=== PATIENT | female | born 1995 | race Caucasian/White ===

== ENCOUNTER 2019-01-14 11:48 | Emergency (ER) | payer OTHER ==
[2019-01-14] MEDS ORDERED: Zofran 4 MG/2 ML VIAL IV ONE (11:53)
[2019-01-14] MEDS ORDERED: Sodium Chloride 0.9% 1000 ML 1,000 ML IV STA ×2 (11:53→13:32)
--- NOTE | 2019-01-14 11:53 | ERPHSYRPT ---
- History of Present Illness Time Seen by Provider: 01/14/19 11:53 Source: patient Exam Limitations: no limitations Physician History: 23 y/o white female with h/o in past of opiate drug abuse. pt placed on methadone. pt decided to quit methadone "cold turkey". pt is 9 days off methadone. pt states she doesnt feel right. she has nausea, vomiting and sweating. she cannot hold down fluids. pt concerned about dehydration. Severity of Symptoms-Max: moderate Severity of Symptoms-Current: moderate Context related to: other (methadone withdraw) Associated Symptoms: anxiety Previous symptoms: no prior history Allergies/Adverse Reactions: azithromycin [From Zithromax] Allergy (Verified 01/14/19 13:32) Sulfa (Sulfonamide Antibiotics) Allergy (Verified 01/14/19 13:32) - Past Medical History Pertinent Past Medical History: Yes Neurological History: No Pertinent History ENT History: No Pertinent History Cardiac History: No Pertinent History Respiratory History: No Pertinent History Endocrine Medical History: No Pertinent History Musculoskeletal History: No Pertinent History GI Medical History: No Pertinent History History: No Pertinent History Psycho-Social History: No Pertinent History Female Reproductive Disorders: No Pertinent History - Past Surgical History Neuro Surgical History: No Pertinent History Cardiac: No Pertinent History Respiratory: No Pertinent History Gastrointestinal: No Pertinent History Genitourinary: No Pertinent History Musculoskeletal: No Pertinent History Female Surgical History: No Pertinent History - Social History Drug Use: heroin (former), other (opiates former) - Review of Systems Constitutional: No Symptoms Eyes: No Symptoms Ears, Nose, & Throat: No Symptoms Respiratory: No Symptoms Cardiac: No Symptoms Abdominal/Gastrointestinal: Nausea, Vomiting, Appetite Changes Genitourinary Symptoms: No Symptoms Musculoskeletal: No Symptoms Skin: No Symptoms Neurological: No Symptoms Psychological: No Symptoms Endocrine: No Symptoms Hematologic/Lymphatic: No Symptoms Immunological/Allergic: No Symptoms All Other Systems: Reviewed and Negative - Nursing Vital Signs Nursing Vital Signs: Initial Vital Signs Temperature 97.7 F 01/14/19 11:58 Pulse Rate 91 H 01/14/19 11:58 Respiratory Rate 16 01/14/19 11:58 Blood Pressure 145/105 01/14/19 11:58 O2 Sat by Pulse Oximetry 100 01/14/19 11:58 Pain Scale Pain Intensity 4 - Physical Exam General Appearance: mild distress, alert, anxiety Eyes, Ears, Nose, Throat Exam: normal ENT inspection, moist mucous membranes Neck Exam: normal inspection, non-tender, supple, full range of motion Respiratory Exam: normal breath sounds, lungs clear, airway intact, No chest tenderness, No respiratory distress Cardiovascular Exam: regular rate/rhythm, normal heart sounds, normal peripheral pulses Gastrointestinal/Abdominal Exam: soft, normal bowel sounds, No tenderness Neurological Exam: alert, 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, oriented x 3, anxious Appearance: appropriate appearance, appropriate insight, neat, no memory impairment Behavior/Eye Contact/Speech: alert & cooperative, good eye contact, normal speech Thoughts/Hallucinations: normal thought pattern, no apparent hallucination Skin Exam: normal color, warm, dry SpO2 Interpretation: normal O2 Delivery: Room Air - Course Nursing assessment & vital signs reviewed: Yes Ordered Tests: Active Orders 24 hr Category Date Time Status IV Insertion STAT Care 01/14/19 11:53 Active ACETAMINOPHEN Stat Lab 01/14/19 12:15 Completed CBC W DIFF Stat Lab 01/14/19 12:15 Completed CMP Stat Lab 01/14/19 12:15 Completed ETHYL ALCOHOL Stat Lab 01/14/19 12:15 Completed HCG,QUALITATIVE URINE Stat Lab 01/14/19 12:16 Completed SALICYLATE Stat Lab 01/14/19 12:15 Completed UA W/RFX UR CULTURE Stat Lab 01/14/19 12:16 Completed Urine Triage Profile Stat Lab 01/14/19 12:16 Completed Medication Summary Generic Name Dose Route Start Last Admin Trade Name Freq PRN Reason Stop Dose Admin Sodium Chloride 1,000 mls @ 999 mls/hr 01/14/19 13:32 01/14/19 13:50 Sodium Chloride 0.9% 1000 Ml IV 01/14/19 14:32 999 mls/hr .Q1H1M STA Administration Discontinued Medications Generic Name Dose Route Start Last Admin Trade Name Freq PRN Reason Stop Dose Admin Sodium Chloride 1,000 mls @ 999 mls/hr 01/14/19 11:53 01/14/19 14:08 Sodium Chloride 0.9% 1000 Ml IV 01/14/19 12:53 Infused .Q1H1M STA Infusion Sodium Chloride Confirm 01/14/19 12:05 Sodium Chloride 0.9% 1000 Ml Administered 01/14/19 12:06 Dose 1,000 mls @ ud .ROUTE .STK-MED ONE Sodium Chloride Confirm 01/14/19 13:49 Sodium Chloride 0.9% 1000 Ml Administered 01/14/19 13:50 Dose 1,000 mls @ ud .ROUTE .STK-MED ONE Lorazepam 0.5 mg 01/14/19 13:53 01/14/19 14:14 Ativan 2 Mg/1 Ml Vial IV 01/14/19 13:54 0.5 mg STAT ONE Administration Lorazepam Confirm 01/14/19 14:12 Ativan 2 Mg/1 Ml Vial Administered 01/14/19 14:13 Dose 2 mg .ROUTE .STK-MED ONE Ondansetron HCl 4 mg 01/14/19 11:53 01/14/19 12:25 Zofran 4 Mg/2 Ml Vial IV 01/14/19 11:54 4 mg STAT ONE Administration Ondansetron HCl Confirm 01/14/19 12:05 Zofran 4 Mg/2 Ml Vial Administered 01/14/19 12:06 Dose 4 mg .ROUTE .STK-MED ONE Lab/Rad Data: Laboratory Result Diagrams 01/14/19 12:15 01/14/19 12:15 Laboratory Results 01/14/19 01/14/19 01/14/19 Range/Units 12:16 12:16 12:16 WBC (4.0-10.5) K/mm3 RBC (4.1-5.4) M/mm3 Hgb (12.0-16.0) gm/dl Hct (35-47) % MCV (78-100) fl MCH (26-32) pg MCHC (32-36) g/dl RDW (11.5-14.0) % Plt Count (150-450) K/mm3 MPV (6-9.5) fl Gran % (36.0-66.0) % Eos # (Auto) (0-0.5) Absolute Lymphs (auto) (1.0-4.6) Absolute Monos (auto) (0.0-1.3) Lymphocytes % (24.0-44.0) % Monocytes % (0.0-12.0) % Eosinophils % (0.00-5.0) % Basophils % (0.0-0.4) % Absolute Granulocytes (1.4-6.9) Basophils # (0-0.4) Sodium (137-145) mmol/L Potassium (3.5-5.1) mmol/L Chloride (98-107) mmol/L Carbon Dioxide (22-30) mmol/L Anion Gap (5-15) MEQ/L BUN (7-17) mg/dL Creatinine (0.52-1.04) mg/dL Estimated GFR ML/MIN Glucose (74-106) mg/dL Calcium (8.4-10.2) mg/dL Total Bilirubin (0.2-1.3) mg/dL AST (14-36) U/L ALT (0-35) U/L Alkaline Phosphatase (38-126) U/L Serum Total Protein (6.3-8.2) g/dL Albumin (3.5-5.0) g/dL Urine Color YELLOW (YELLOW) Urine Appearance CLEAR (CLEAR) Urine pH 6.0 (5-6) Ur Specific [place] 1.020 (1.005-1.025) Urine Protein NEGATIVE (Negative) Urine Ketones NEGATIVE (NEGATIVE) Urine Blood NEGATIVE (0-5) Cedric/ul Urine Nitrite NEGATIVE (NEGATIVE) Urine Bilirubin NEGATIVE (NEGATIVE) Urine Urobilinogen NEGATIVE (0-1) mg/dL Ur Leukocyte Esterase NEGATIVE (NEGATIVE) Urine WBC (Auto) NONE (0-5) /HPF Urine RBC (Auto) NONE (0-2) /HPF U Epithel Cells (Auto) NONE (FEW) /HPF Urine Bacteria (Auto) NONE (NEGATIVE) /HPF Urine Mucus (Auto) SLIGHT (NEGATIVE) /HPF Urine Culture Reflexed NO (NO) Urine Glucose NEGATIVE (NEGATIVE) mg/dL Urine HCG, Qual NEGATIVE (Negative) Salicylates (2-20) mg/dL Urine Opiates Level NEGATIVE (NEGATIVE) Ur Methadone NEGATIVE (NEGATIVE) Acetaminophen (10-30) ug/ml Urine Barbiturates NEGATIVE (NEGATIVE) Ur Phencyclidine (PCP) NEGATIVE (NEGATIVE) Urine Amphetamine NEGATIVE (NEGATIVE) U Benzodiazepine Level NEGATIVE (NEGATIVE) Urine Cocaine NEGATIVE (NEGATIVE) Urine Marijuana (THC) NEGATIVE (NEGATIVE) Ethyl Alcohol (0-10) mg/dL 01/14/19 01/14/19 Range/Units 12:15 12:15 WBC 6.9 (4.0-10.5) K/mm3 RBC 5.47 H (4.1-5.4) M/mm3 Hgb 16.1 H (12.0-16.0) gm/dl Hct 48.8 H (35-47) % MCV 89.2 (78-100) fl MCH 29.4 (26-32) pg MCHC 33.0 (32-36) g/dl RDW 13.8 (11.5-14.0) % Plt Count 260 (150-450) K/mm3 MPV 9.1 (6-9.5) fl Gran % 76.0 H (36.0-66.0) % Eos # (Auto) 0.04 (0-0.5) Absolute Lymphs (auto) 1.21 (1.0-4.6) Absolute Monos (auto) 0.39 (0.0-1.3) Lymphocytes % 17.6 L (24.0-44.0) % Monocytes % 5.7 (0.0-12.0) % Eosinophils % 0.6 (0.00-5.0) % Basophils % 0.1 (0.0-0.4) % Absolute Granulocytes 5.22 (1.4-6.9) Basophils # 0.01 (0-0.4) Sodium 144 (137-145) mmol/L Potassium 3.9 (3.5-5.1) mmol/L Chloride 104 (98-107) mmol/L Carbon Dioxide 27 (22-30) mmol/L Anion Gap 16.9 H (5-15) MEQ/L BUN 22 H (7-17) mg/dL Creatinine 0.64 (0.52-1.04) mg/dL Estimated GFR > 60.0 ML/MIN Glucose 83 (74-106) mg/dL Calcium 10.2 (8.4-10.2) mg/dL Total Bilirubin 0.50 (0.2-1.3) mg/dL AST 41 H (14-36) U/L ALT 14 (0-35) U/L Alkaline Phosphatase 57 (38-126) U/L Serum Total Protein 9.0 H (6.3-8.2) g/dL Albumin 5.1 H (3.5-5.0) g/dL Urine Color (YELLOW) Urine Appearance (CLEAR) Urine pH (5-6) Ur Specific [place] (1.005-1.025) Urine Protein (Negative) Urine Ketones (NEGATIVE) Urine Blood (0-5) Cedric/ul Urine Nitrite (NEGATIVE) Urine Bilirubin (NEGATIVE) Urine Urobilinogen (0-1) mg/dL Ur Leukocyte Esterase (NEGATIVE) Urine WBC (Auto) (0-5) /HPF Urine RBC (Auto) (0-2) /HPF U Epithel Cells (Auto) (FEW) /HPF Urine Bacteria (Auto) (NEGATIVE) /HPF Urine Mucus (Auto) (NEGATIVE) /HPF Urine Culture Reflexed (NO) Urine Glucose (NEGATIVE) mg/dL Urine HCG, Qual (Negative) Salicylates < 1.0 L (2-20) mg/dL Urine Opiates Level (NEGATIVE) Ur Methadone (NEGATIVE) Acetaminophen < 10 L (10-30) ug/ml Urine Barbiturates (NEGATIVE) Ur Phencyclidine (PCP) (NEGATIVE) Urine Amphetamine (NEGATIVE) U Benzodiazepine Level (NEGATIVE) Urine Cocaine (NEGATIVE) Urine Marijuana (THC) (NEGATIVE) Ethyl Alcohol < 10 (0-10) mg/dL - Progress Progress: improved, re-examined Counseled pt/family regarding: lab results, diagnosis, need for follow-up - Departure Departure Disposition: Home Clinical Impression: Vomiting, Anxiety Condition: Stable Critical Care Time: No Referrals: DOCTOR,NO FAMILY [Primary Care Provider] - Additional Instructions: drink plenty of fluids. follow up with primary doctor for further management Prescriptions: Ondansetron HCl [Zofran] 4 mg PO TID PRN #10 tablet PRN Reason: Nausea/Vomiting
[2019-01-14] MEDS ORDERED: Zofran 4 MG/2 ML VIAL ONE (12:05)
[2019-01-14] MEDS ORDERED: Sodium Chloride 0.9% 1000 ML 1,000 ML ONE ×2 (12:05→13:49)
[2019-01-14 12:21] LABS: BASOPHIL % 0.1 % (0.0-0.4); Basophil (Absolute #) 0.01 (0-0.4); Eosinophil % 0.6 % (0.00-5.0); Eosinophil (Absolute #) 0.04 (0-0.5); Granulocyte Absolute (ANC) 5.22 (1.4-6.9); Hematocrit 48.8 % (35-47); Hemoglobin 16.1 gm/dl (12.0-16.0); Lymphocyte (Absolute #) 1.21 (1.0-4.6); Lymphocytes % 17.6 % (24.0-44.0); Mean Cell Volume 89.2 fl (78-100); Mean Corpuscular Hemoglobin 29.4 pg (26-32); Mean Platelet Volume 9.1 fl (6-9.5); Monocyte (Absolute #) 0.39 (0.0-1.3); Monocytes % 5.7 % (0.0-12.0); Platelet Count 260 K/mm3 (150-450); Red Blood Count 5.47 M/mm3 (4.1-5.4); Red Cell Distribution Width 13.8 % (11.5-14.0); White Blood Count 6.9 K/mm3 (4.0-10.5)
[2019-01-14 12:26] LABS: Appearance CLEAR (CLEAR); Bilirubin NEGATIVE (NEGATIVE); Blood NEGATIVE Ery/ul (0-5); Glucose NEGATIVE (NEGATIVE); Ketones NEGATIVE (NEGATIVE); Leukocyte Esterase NEGATIVE (NEGATIVE); Mucus SLIGHT /HPF (NEGATIVE); Nitrite NEGATIVE (NEGATIVE); Protein,Urine Dip NEGATIVE (Negative); Urobilinogen NEGATIVE mg/dL (0-1)
[2019-01-14 12:50] LABS: ALBUMIN 5.1 g/dL (3.5-5.0); ALKALINE PHOSPHATASE 57 U/L (38-126); ANION GAP 16.9 MEQ/L (5-15); BLOOD UREA NITROGEN 22 mg/dL (7-17); CHLORIDE 104 mmol/L (98-107); Calcium 10.2 mg/dL (8.4-10.2); Carbon Dioxide 27 mmol/L (22-30); Creatinine 1 0.64 mg/dL (0.52-1.04); Glucose 83 mg/dL (74-106); Potassium 3.9 mmol/L (3.5-5.1); SGOT/AST 41 U/L (14-36); SGPT/ALT 14 U/L (0-35); SODIUM 144 mmol/L (137-145)
[2019-01-14 12:51] LABS: ACETAMINOPHEN < 10 ug/ml (10-30); ETHYL ALCOHOL < 10 mg/dL (0-10); SALICYLATE < 1.0 mg/dL (2-20)
[2019-01-14 12:57] LABS: Amphetamine,Urine NEGATIVE (NEGATIVE); Barbiturate,Urine NEGATIVE (NEGATIVE); Benzodiazepine,Urine NEGATIVE (NEGATIVE); Cocaine,Urine NEGATIVE (NEGATIVE); Methadone,Urine NEGATIVE (NEGATIVE); Opiate,Urine NEGATIVE (NEGATIVE); PCP,Urine NEGATIVE (NEGATIVE); THC,Urine NEGATIVE (NEGATIVE)
[2019-01-14] MEDS ORDERED: Ativan 2 MG/1 ML VIAL IV ONE (13:53)
[2019-01-14] MEDS ORDERED: Ativan 2 MG/1 ML VIAL ONE (14:12)
[2019-01-14 14:31] VITALS: BP 134/92; PULSE 82; O2SAT 100
== END 2019-01-14 14:41 | disposition home or self-care (01) ==
LOC: ED 11:48
DX: R11.10 Vomiting, unspecified (principal); F41.9 Anxiety disorder, unspecified
CPT/HCPCS: 36415; 80053; 80307; 81001; 84703; 85025; 96360; 96361; 96374; 96375; 99284; G0480; G0481; J2060; J2405

== ENCOUNTER 2019-05-22 18:14 | Emergency (ER) | payer OTHER | END 2019-05-22 19:20 | disposition left against medical advice (07) | LOC: ED 18:14 | DX: Z53.9 Procedure and treatment not carried out, unspecified reason (principal) | CPT/HCPCS: 99281 ==

== ENCOUNTER 2021-10-23 14:39 | Emergency (ER) | payer OTHER ==
[2021-10-23 14:51] VITALS: BP 126/81
--- NOTE | 2021-10-23 14:52 | ERPHSYRPT ---
- History of Present Illness Time Seen by Provider: 10/23/21 14:51 Source: patient Exam Limitations: no limitations Patient Subjective Stated Complaint: Pt states "I was at work about 4 weeks ago and my right wrist popped and a week ago it did again. I am having pain in my right wrist that goes up into my right elbow." Triage Nursing Assessment: Pt presented alert and oriented X 3, skin pwd. Pt ambulates with an upright steady gait, able to speak in clear full sentences. PT right wrist not swollen, no bruising noted, csm x 4 Physician History: This is a 26-year-old white female who is right-handed and presents with right wrist pain and popping that has been intermittent over the last 1 to 2 months. She does do a lot of repetitive work at her job. Recently, she noticed that the pain that is present in her right wrist shoots up into her elbow on the right side. She spoke to her prescribing provider today and they called in prednisone for her to help with symptom relief but also told her to come to the emergency department for evaluation. The patient has not noticed any swelling. She has no chest pain. She is not short of breath. She has no cough. Occurred: other (Several weeks ago) Method of Injury: other (Repetitive work at her job) Severity of Pain-Max: mild (To moderate) Severity of Pain-Current: mild (To moderate) Extremities Pain Location: wrist: right Modifying Factors: Improves With: movement Associated Symptoms: none Allergies/Adverse Reactions: azithromycin [From Zithromax] Allergy (Verified 01/14/19 13:32) Sulfa (Sulfonamide Antibiotics) Allergy (Verified 01/14/19 13:32) Home Medications: Buprenorphine HCl/Naloxone HCl [Buprenorphine-Nalox 2-0.5MG Tb] 3 tab PO DAILY 10/23/21 [History] Diazepam 5 mg [Valium 5 MG] 10 mg PO DAILY 10/23/21 [History] Prednisone 20 mg [Deltasone 20 mg] 20 mg PO DAILY 10/23/21 [History] Hx Tetanus, Diphtheria Vaccination/Date Given: Yes Hx Influenza Vaccination/Date Given: No Hx Pneumococcal Vaccination/Date Given: No Immunizations Up to Date: Yes Travel Risk - International Travel Have you traveled outside of the country in past 3 weeks: No - Coronavirus Screening Are you exhibiting any of the following symptoms?: No Close contact with a COVID-19 positive Pt in past 14-21 Days: No - Vaccine Status Have you recieved a Covid-19 vaccination: No - Review of Systems Constitutional: No Symptoms Eyes: No Symptoms Ears, Nose, & Throat: No Symptoms Respiratory: No Symptoms Cardiac: No Symptoms Abdominal/Gastrointestinal: No Symptoms Genitourinary Symptoms: No Symptoms Musculoskeletal: Joint Pain (Right wrist) Skin: No Symptoms Neurological: No Symptoms Psychological: No Symptoms Endocrine: No Symptoms Hematologic/Lymphatic: No Symptoms Immunological/Allergic: No Symptoms All Other Systems: Reviewed and Negative - Past Medical History Pertinent Past Medical History: Yes Neurological History: No Pertinent History ENT History: No Pertinent History Cardiac History: No Pertinent History Respiratory History: No Pertinent History Endocrine Medical History: No Pertinent History Musculoskeletal History: No Pertinent History GI Medical History: No Pertinent History History: No Pertinent History Psycho-Social History: No Pertinent History Female Reproductive Disorders: No Pertinent History - Past Surgical History Past Surgical History: Yes Neuro Surgical History: No Pertinent History Cardiac: No Pertinent History Respiratory: No Pertinent History Gastrointestinal: No Pertinent History Genitourinary: No Pertinent History Musculoskeletal: No Pertinent History Female Surgical History: No Pertinent History - Social History Smoking Status: Current every day smoker Exposure to second hand smoke: No Drug Use: none Patient Lives Alone: No - Female History Hx Last Menstrual Period: 10/06/2021 Hx Now: No - Nursing Vital Signs Nursing Vital Signs: Initial Vital Signs Temperature 98.6 F 10/23/21 14:44 Pulse Rate 68 10/23/21 14:44 Respiratory Rate 20 10/23/21 14:44 Blood Pressure 126/81 10/23/21 14:44 O2 Sat by Pulse Oximetry 100 10/23/21 14:44 Pain Scale Pain Intensity 6 - Physical Exam General Appearance: no apparent distress, alert, anxiety Eyes, Ears, Nose, Throat Exam: normal ENT inspection, moist mucous membranes Neck Exam: normal inspection, non-tender, supple, full range of motion Cardiovascular/Respiratory Exam: chest non-tender, no respiratory distress Abdominal Exam: non-tender Back Exam: normal inspection, normal range of motion, No CVA tenderness, No vertebral tenderness Shoulder Exam: normal inspection, non-tender, no evidence of injury, normal ROM Elbow/Forearm Exam: normal inspection, non-tender, no evidence of injury, normal ROM Wrist Exam: normal inspection, no evidence of injury, normal ROM, bone tenderness, soft tissue tenderness Hand Exam: normal inspection, non-tender, no evidence of injury, normal ROM Neuro/Tendon Exam: normal sensation, normal motor functions, normal tendon functions, responds to pain, no evidence tendon injury Mental Status Exam: alert, oriented x 3, cooperative Skin Exam: normal color, warm, dry SpO2 Interpretation: normal SpO2: 100 O2 Delivery: Room Air - Course Nursing assessment & vital signs reviewed: Yes Ordered Tests: Active Orders 24 hr Category Date Time Status WRIST (MIN 3 VIEWS) Stat Exams 10/23/21 14:52 Taken - Progress Progress: unchanged Progress Note: 10/23/21 15:19 X-ray right wrist shows no acute fracture or dislocation. Counseled pt/family regarding: diagnosis, need for follow-up, rad results - Departure Departure Disposition: Home Clinical Impression: Right wrist pain Condition: Stable Critical Care Time: No Additional Instructions: Ice pack to area 2-3 times a day for the next 48 hours. Follow-up tomorrow with [facility] orthopedic clinic 8 AM to 10 AM. It is a walk-in clinic and you do not need an appointment. Take your prednisone prescription that was called in for you as directed. Wear the splint for comfort.
--- NOTE | 2021-10-23 15:26 | XRAY ---
Indication: Pain and "popping." Comparison: None 3 view right wrist demonstrates normal bones, articulation, and soft tissues.
[2021-10-23 15:27] VITALS: PULSE 62; O2SAT 99
== END 2021-10-23 15:32 | disposition home or self-care (01) ==
LOC: ED 14:39
DX: M25.531 Pain in right wrist (principal); X50.3XXA Overexertion from repetitive movements, initial encounter; Y99.0 Civilian activity done for income or pay; Z72.0 Tobacco use; Z79.891 Long term (current) use of opiate analgesic; Z79.52 Long term (current) use of systemic steroids; Z79.899 Other long term (current) drug therapy; Z28.310 Unvaccinated for COVID-19
CPT/HCPCS: 73110; 99283

== ENCOUNTER 2021-12-11 05:41 | Emergency (ER) | payer OTHER ==
[2021-12-11] MEDS ORDERED: BENADRYL 50 MG/ML IV ONE ×2 (06:23→07:46)
[2021-12-11] MEDS ORDERED: TYLENOL 325 MG PO ONE (06:23)
[2021-12-11] MEDS ORDERED: TORAdol 30 mg Injection IV ONE (06:23)
[2021-12-11] MEDS ORDERED: Reglan 10 MG/2 ML IV ONE (06:23)
[2021-12-11] MEDS ORDERED: Sodium Chloride 0.9% 1000 ML 1,000 ML IV STA (06:23)
[2021-12-11] MEDS ORDERED: TORAdol 30 mg Injection ONE (06:30)
[2021-12-11] MEDS ORDERED: TYLENOL 325 MG ONE (06:30)
[2021-12-11] MEDS ORDERED: BENADRYL 50 MG/ML ONE ×2 (06:30→08:15)
[2021-12-11] MEDS ORDERED: Reglan 10 MG/2 ML ONE (06:31)
[2021-12-11] MEDS ORDERED: Sodium Chloride 0.9% 1000 ML 1,000 ML ONE (06:31)
[2021-12-11 06:32] LABS: Absolute Neutrophil Ct (ANC) 3.09 x10^3/uL (1.4-6.9); Basophil (Absolute #) 0.01 x10^3/uL (0-0.4); Eosinophil % 0.7 % (0.00-5.0); Eosinophil (Absolute #) 0.03 x10^3/uL (0-0.5); Hematocrit 39.6 % (35-47); Hemoglobin 13.2 g/dL (12.0-16.0); Lymphocyte (Absolute #) 0.84 x10^3/uL (1.0-4.6); Lymphocytes % 19.5 % (24.0-44.0); Mean Cell Volume 86.8 fL (78-100); Mean Corpuscular Hemoglobin 28.9 pg (26-32); Mean Corpuscular Hgb Concent. 33.3 g/dL (32-36); Mean Platelet Volume 9.3 fL (7.5-11.0); Monocyte (Absolute #) 0.32 x10^3/uL (0.0-1.3); Monocytes % 7.4 % (0.0-12.0); Platelet Count 187 x10^3/uL (150-450); Red Blood Count 4.56 x10^6/uL (4.1-5.4); Red Cell Distribution Width 13.2 % (11.5-14.0); White Blood Count 4.3 x10^3/uL (4.0-10.5)
[2021-12-11 06:36] LABS: ALKALINE PHOSPHATASE 68 U/L (38-126); ANION GAP 10.8 MEQ/L (5-15); BLOOD UREA NITROGEN 14 mg/dL (7-17); CHLORIDE 102 mmol/L (98-107); Calcium 9.1 mg/dL (8.4-10.2); Carbon Dioxide 27 mmol/L (22-30); Creatinine 1 0.56 mg/dL (0.52-1.04); EST GLOMERULAR FILTRATION RATE > 60.0 ML/MIN; Glucose 94 mg/dL (74-106); Potassium 3.8 mmol/L (3.5-5.1); SGOT/AST 26 U/L (14-36); SGPT/ALT 17 U/L (0-35); SODIUM 136 mmol/L (137-145); Total Protein 7.2 g/dL (6.3-8.2)
--- NOTE | 2021-12-11 06:41 | ERPHSYRPT ---
- History of Present Illness Source: patient Exam Limitations: no limitations Patient Subjective Stated Complaint: Pt states she has a history of migraines but they've gotten worse over last 2 weeks. Also running fever. Triage Nursing Assessment: Pt alert and oriented. Ambulated back to ER bed with a steady gait. Respirations easy and non-labored. Pt covering her eyes and tearful. Temp 100.4. Timing/Duration: day(s) (5), constant, gradual onset, worse Quality: sharpness Head Pain Location: global Severity of Pain-Max: severe Severity of Pain-Current: severe Recent Head Trauma: no recent headache/trauma, frequent headaches Modifying Factors: Worsens With: exposure to light Associated Symptoms: fatigue, fever/chills, nausea/vomiting, neck pain, sensitive to light, No loss of consciousness, No nasal drainage, No speech problems, No stiff neck, No trouble walking, No visual disturbance, No weakness Previous symptoms: same symptoms as today Hx Tetanus, Diphtheria Vaccination/Date Given: Yes Hx Influenza Vaccination/Date Given: No Hx Pneumococcal Vaccination/Date Given: No <ADAMA LOUIS - Last Filed: 12/11/21 06:25> <KETAN APPLE - Last Filed: 12/11/21 09:08> - History of Present Illness Time Seen by Provider: 12/11/21 06:02 Physician History: 26 years old female with a history of migraine poorly controlled presented in the ER with 5-day history of generalized headache moderate to severe sharp throbbing, nonresponsive to [id number] medications, associated with nausea and 2 episodes of nonprojectile, nonbilious vomiting of 5 days. She also reports having low-grade fever since yesterday with a T-max of 101. Mild right- sided neck pain but no difficulty range of motion. Denies any focal numbness tingling weakness. Does report photophobia. (ADAMA LOUIS) Allergies/Adverse Reactions: azithromycin [From Zithromax] Allergy (Verified 01/14/19 13:32) Sulfa (Sulfonamide Antibiotics) Allergy (Verified 01/14/19 13:32) Home Medications: Buprenorphine HCl/Naloxone HCl [Buprenorphine-Nalox 2-0.5MG Tb] 2 mg PO TID 10/23/21 [History] Diazepam 5 mg [Valium 5 MG] 10 mg PO DAILY PRN 10/23/21 [History] Trazodone HCl 50 mg [Desyrel 50 mg] 25 mg PO DAILY PRN 12/11/21 [History] Travel Risk - International Travel Have you traveled outside of the country in past 3 weeks: No - Coronavirus Screening Are you exhibiting any of the following symptoms?: Yes Symptoms: Fever, Vomiting/Diarrhea, Headaches/Body Aches/Fatigue Close contact with a COVID-19 positive Pt in past 14-21 Days: No - Vaccine Status Have you recieved a Covid-19 vaccination: No <ADAMA LOUIS - Last Filed: 12/11/21 06:25> - Review of Systems Constitutional: Fever, Chills Eyes: Photophobia Ears, Nose, & Throat: No Symptoms Respiratory: No Symptoms Cardiac: No Symptoms Abdominal/Gastrointestinal: Abdominal Pain, Nausea, Vomiting Genitourinary Symptoms: Vaginal Bleeding Musculoskeletal: Back Pain, Neck Pain Neurological: Headache Psychological: No Symptoms Endocrine: No Symptoms Hematologic/Lymphatic: No Symptoms Immunological/Allergic: No Symptoms <ADAMA LOUIS - Last Filed: 12/11/21 06:25> - Past Medical History Pertinent Past Medical History: Yes Neurological History: Migraines ENT History: No Pertinent History Cardiac History: No Pertinent History Respiratory History: Asthma Endocrine Medical History: Hypothyroidism Musculoskeletal History: No Pertinent History GI Medical History: No Pertinent History History: No Pertinent History, Bladder Cancer Psycho-Social History: No Pertinent History Female Reproductive Disorders: No Pertinent History, Other Other Medical History: irregular menstrual bleeding - Past Surgical History Past Surgical History: Yes Neuro Surgical History: No Pertinent History Cardiac: No Pertinent History Respiratory: No Pertinent History Gastrointestinal: No Pertinent History Genitourinary: No Pertinent History Musculoskeletal: No Pertinent History Female Surgical History: Other Other Surgical History: oral surgery - Social History Smoking Status: Former smoker Exposure to second hand smoke: No Drug Use: none Patient Lives Alone: No - Female History Hx Now: No <ADAMA LOUIS - Last Filed: 12/11/21 06:25> - Physical Exam General Appearance: no apparent distress, alert Eye Exam: PERRL/EOMI, eyes nml inspection Ears, Nose, Throat Exam: normal ENT inspection, TMs normal, pharynx normal, moist mucous membranes Neck Exam: normal inspection, non-tender, supple, full range of motion, No meningismus Respiratory Exam: normal breath sounds, lungs clear Cardiovascular Exam: regular rate/rhythm, normal heart sounds Gastrointestinal/Abdominal Exam: soft, normal bowel sounds, tenderness (Generalized mild) Back Exam: normal inspection Extremity Exam: normal inspection, normal range of motion, pelvis stable Mental Status Exam: alert, oriented x 3, cooperative rn hospice Exam: normal hearing, normal speech, PERRL Coordination/Gait Exam: normal finger to nose, normal gait, normal cerebellar function Motor/Sensory Exam: no motor deficit, no sensory deficit, no pronator drift, negative Babinski's sign DTR Exam: bicep (R): 2+, bicep (L): 2+, knee (R): 2+, knee (L): 2+ Skin Exam: normal color SpO2 Interpretation: normal SpO2: 97 O2 Delivery: Room Air <ADAMA LOUIS - Last Filed: 12/11/21 06:25> - Nursing Vital Signs Nursing Vital Signs: Initial Vital Signs Temperature 100.4 F 12/11/21 06:00 Pulse Rate 91 H 12/11/21 06:00 Respiratory Rate 18 12/11/21 06:00 Blood Pressure 123/79 12/11/21 06:00 O2 Sat by Pulse Oximetry 97 12/11/21 06:00 Pain Scale Pain Intensity 2 Ordered Tests: Active Orders 24 hr Category Date Time Status IV Insertion STAT Care 12/11/21 06:23 Active HEAD WITHOUT CONTRAST [CT] Stat Exams 12/11/21 06:24 Completed BLOOD CULTURE Stat Lab 12/11/21 06:40 Received CBC W DIFF Stat Lab 12/11/21 06:13 Completed CMP Stat Lab 12/11/21 06:13 Completed HCG QUALITATIVE,SERUM Stat Lab 12/11/21 06:13 Completed UA W/RFX CULTURE Stat Lab 12/11/21 08:36 Completed Medication Summary Discontinued Medications Generic Name Dose Route Start Last Admin Trade Name Jay Jay PRN Reason Stop Dose Admin Acetaminophen 975 mg 12/11/21 06:23 12/11/21 06:38 Acetaminophen 325 Mg Tablet PO 12/11/21 06:24 975 mg STAT ONE Administration Acetaminophen Confirm 12/11/21 06:30 Acetaminophen 325 Mg Tablet Administered 12/11/21 06:31 Dose 975 mg .ROUTE .STK-MED ONE Dexamethasone Sodium Phosphate 10 mg 12/11/21 07:46 12/11/21 08:18 Dexamethasone Sod Phosphate 10 Mg/Ml IV 12/11/21 07:47 10 mg STAT ONE Administration Dexamethasone Sodium Phosphate Confirm 12/11/21 08:15 Dexamethasone Sod Phosphate 10 Mg/Ml Administered 12/11/21 08:16 Dose 10 mg .ROUTE .STK-MED ONE Diphenhydramine HCl 25 mg 12/11/21 06:23 12/11/21 06:34 Diphenhydramine Hcl 50 Mg/Ml Vial IV 12/11/21 06:24 25 mg STAT ONE Administration Diphenhydramine HCl Confirm 12/11/21 06:30 Diphenhydramine Hcl 50 Mg/Ml Vial Administered 12/11/21 06:31 Dose 50 mg .ROUTE .STK-MED ONE Diphenhydramine HCl 25 mg 12/11/21 07:46 12/11/21 08:19 Diphenhydramine Hcl 50 Mg/Ml Vial IV 12/11/21 07:47 25 mg STAT ONE Administration Diphenhydramine HCl Confirm 12/11/21 08:15 Diphenhydramine Hcl 50 Mg/Ml Vial Administered 12/11/21 08:16 Dose 50 mg .ROUTE .STK-MED ONE Sodium Chloride 1,000 mls @ 999 mls/hr 12/11/21 06:23 12/11/21 07:31 Sodium Chloride 0.9% 1000 Ml IV 12/11/21 07:23 Infused .Q1H1M STA Infusion Sodium Chloride Confirm 12/11/21 06:31 Sodium Chloride 0.9% 1000 Ml Administered 12/11/21 06:32 Dose 1,000 mls @ ud .ROUTE .STK-MED ONE Ketorolac Tromethamine 30 mg 12/11/21 06:23 12/11/21 06:36 Ketorolac Tromethamine 30 Mg/Ml Inj IV 12/11/21 06:24 30 mg STAT ONE Administration Ketorolac Tromethamine Confirm 12/11/21 06:30 Ketorolac Tromethamine 30 Mg/Ml Inj Administered 12/11/21 06:31 Dose 30 mg .ROUTE .STK-MED ONE Metoclopramide HCl 10 mg 12/11/21 06:23 12/11/21 06:35 Metoclopramide Hcl 10 Mg/2 Ml Vial IV 12/11/21 06:24 10 mg STAT ONE Administration Metoclopramide HCl Confirm 12/11/21 06:31 Metoclopramide Hcl 10 Mg/2 Ml Vial Administered 12/11/21 06:32 Dose 10 mg .ROUTE .STK-MED ONE Prochlorperazine Edisylate 5 mg 12/11/21 07:47 12/11/21 08:18 Prochlorperazine Edisylate 10 Mg/2 Ml Vial IV 12/11/21 07:48 5 mg STAT ONE Administration Prochlorperazine Edisylate Confirm 12/11/21 08:15 Prochlorperazine Edisylate 10 Mg/2 Ml Vial Administered 12/11/21 08:16 Dose 10 mg .ROUTE .[email or web address] ONE Lab/Rad Data: Laboratory Result Diagrams 12/11/21 06:13 12/11/21 06:13 Laboratory Results 12/11/21 12/11/21 12/11/21 Range/Units 08:36 06:40 06:13 WBC (4.0-10.5) x10^3/uL RBC (4.1-5.4) x10^6/uL Hgb (12.0-16.0) g/dL Hct (35-47) % MCV (78-100) fL MCH (26-32) pg MCHC (32-36) g/dL RDW (11.5-14.0) % Plt Count (150-450) x10^3/uL MPV (7.5-11.0) fL Gran % (36.0-66.0) % Immature Gran % (Auto) (0.00-0.4) % Nucleat RBC Rel Count (0.00-0.1) % Eos # (Auto) (0-0.5) x10^3/uL Immature Gran # (Auto) (0.00-0.03) x10^3u/L Absolute Lymphs (auto) (1.0-4.6) x10^3/uL Absolute Monos (auto) (0.0-1.3) x10^3/uL Absolute Nucleated RBC (0.00-0.01) x10^3u/L Lymphocytes % (24.0-44.0) % Monocytes % (0.0-12.0) % Eosinophils % (0.00-5.0) % Basophils % (0.0-0.4) % Absolute Granulocytes (1.4-6.9) x10^3/uL Basophils # (0-0.4) x10^3/uL Sodium (137-145) mmol/L Potassium (3.5-5.1) mmol/L Chloride (98-107) mmol/L Carbon Dioxide (22-30) mmol/L Anion Gap (5-15) MEQ/L BUN (7-17) mg/dL Creatinine (0.52-1.04) mg/dL Estimated GFR ML/MIN Glucose (74-106) mg/dL Calcium (8.4-10.2) mg/dL Total Bilirubin (0.2-1.3) mg/dL AST (14-36) U/L ALT (0-35) U/L Alkaline Phosphatase (38-126) U/L Serum Total Protein (6.3-8.2) g/dL Albumin (3.5-5.0) g/dL Serum , Qual NEGATIVE (Negative) Urinalys Dipstick Clnc MAIN LAB Urine Color YELLOW (YELLOW) Urine Appearance CLEAR (CLEAR) Urine pH 6.0 (5-6) Ur Specific [place] 1.025 (1.005-1.025) POC Urine Protein Conf NEGATIVE (Negative) Urine Ketones MODERATE-40 (NEGATIVE) Urine Nitrite NEGATIVE (NEGATIVE) Urine Bilirubin NEGATIVE (NEGATIVE) Urine Urobilinogen 1 (0-1) mg/dL Urine Leukocytes NEGATIVE (NEGATIVE) Urine WBC (Auto) 0-2 (0-5) /HPF Urine RBC (Auto) NONE (0-2) /HPF U Epithel Cells (Auto) NONE (FEW) /HPF Urine Bacteria (Auto) NONE (NEGATIVE) /HPF Urine RBC NEGATIVE (0-5) Cedric/ul Urine Mucus (Auto) SLIGHT (NEGATIVE) /HPF Ur Culture Indicated? NO Urine Glucose NEGATIVE (NEGATIVE) mg/dL Influenza Type A Ag NEGATIVE (NEGATIVE) Influenza Type B Ag NEGATIVE (NEGATIVE) RSV (PCR) NEGATIVE (Negative) SARS-CoV-2 (PCR) NEGATIVE (NEGATIVE) 12/11/21 12/11/21 Range/Units 06:13 06:13 WBC 4.3 (4.0-10.5) x10^3/uL RBC 4.56 (4.1-5.4) x10^6/uL Hgb 13.2 (12.0-16.0) g/dL Hct 39.6 (35-47) % MCV 86.8 (78-100) fL MCH 28.9 (26-32) pg MCHC 33.3 (32-36) g/dL RDW 13.2 (11.5-14.0) % Plt Count 187 (150-450) x10^3/uL MPV 9.3 (7.5-11.0) fL Gran % 72.0 H (36.0-66.0) % Immature Gran % (Auto) 0.2 (0.00-0.4) % Nucleat RBC Rel Count 0.0 (0.00-0.1) % Eos # (Auto) 0.03 (0-0.5) x10^3/uL Immature Gran # (Auto) 0.01 (0.00-0.03) x10^3u/L Absolute Lymphs (auto) 0.84 L (1.0-4.6) x10^3/uL Absolute Monos (auto) 0.32 (0.0-1.3) x10^3/uL Absolute Nucleated RBC 0.00 (0.00-0.01) x10^3u/L Lymphocytes % 19.5 L (24.0-44.0) % Monocytes % 7.4 (0.0-12.0) % Eosinophils % 0.7 (0.00-5.0) % Basophils % 0.2 (0.0-0.4) % Absolute Granulocytes 3.09 (1.4-6.9) x10^3/uL Basophils # 0.01 (0-0.4) x10^3/uL Sodium 136 L (137-145) mmol/L Potassium 3.8 (3.5-5.1) mmol/L Chloride 102 (98-107) mmol/L Carbon Dioxide 27 (22-30) mmol/L Anion Gap 10.8 (5-15) MEQ/L BUN 14 (7-17) mg/dL Creatinine 0.56 (0.52-1.04) mg/dL Estimated GFR > 60.0 ML/MIN Glucose 94 (74-106) mg/dL Calcium 9.1 (8.4-10.2) mg/dL Total Bilirubin 0.50 (0.2-1.3) mg/dL AST 26 (14-36) U/L ALT 17 (0-35) U/L Alkaline Phosphatase 68 (38-126) U/L Serum Total Protein 7.2 (6.3-8.2) g/dL Albumin 4.0 (3.5-5.0) g/dL Serum , Qual (Negative) Urinalys Dipstick Clnc Urine Color (YELLOW) Urine Appearance (CLEAR) Urine pH (5-6) Ur Specific [place] (1.005-1.025) POC Urine Protein Conf (Negative) Urine Ketones (NEGATIVE) Urine Nitrite (NEGATIVE) Urine Bilirubin (NEGATIVE) Urine Urobilinogen (0-1) mg/dL Urine Leukocytes (NEGATIVE) Urine WBC (Auto) (0-5) /HPF Urine RBC (Auto) (0-2) /HPF U Epithel Cells (Auto) (FEW) /HPF Urine Bacteria (Auto) (NEGATIVE) /HPF Urine RBC (0-5) Cedric/ul Urine Mucus (Auto) (NEGATIVE) /HPF Ur Culture Indicated? Urine Glucose (NEGATIVE) mg/dL Influenza Type A Ag (NEGATIVE) Influenza Type B Ag (NEGATIVE) RSV (PCR) (Negative) SARS-CoV-2 (PCR) (NEGATIVE) <ADAMA LOUIS - Last Filed: 12/11/21 06:25> - Progress Progress: improved Air Movement: good Blood Culture(s) Obtained: Yes Antibiotics given: No Counseled pt/family regarding: lab results, diagnosis, need for follow-up, rad results <KETAN APPLE - Last Filed: 12/11/21 09:08> - Progress Progress Note: 12/11/21 06:55 she is given migraine cocktail, nonfocal neuro exam. Work-up is pending, care is transferred to Dr. Apple at shift change. (ADAMA LOUIS) 12/11/21 07:48 Reassessment: Patient states that her headache has improved. She now only complains of some achiness behind her eyes. She has no complaints of stiff neck or neck pain. We are waiting the results of the procalcitonin and CAT scan of the head. Patient is on Suboxone as well as Valium daily. At the time of discharge, patient will be reassessed. She will follow-up with her prescribing provider for outpatient control of her migraine headaches. 12/11/21 09:07 Patient reassessed. Patient feeling much better at this time. CAT scan of the head without contrast shows no acute intracranial abnormality. (KETAN APPLE) <ADAMA LOUIS - Last Filed: 12/11/21 06:25> - Departure Departure Disposition: Home Critical Care Time: No <KETAN APPLE - Last Filed: 12/11/21 09:08> - Departure Clinical Impression: Migraine headache, Fever Condition: Stable Referrals: DOCTOR,NO FAMILY [Primary Care Provider] - Follow up/PCP as directed Additional Instructions: Drink plenty fluids. Take all your medication as prescribed. Call your primary provider this morning to make arrangements for follow-up appointment for further evaluation management. In addition, discussed with them pain management issues. Add Tylenol and ibuprofen for fever and migraine headache pain control Prescriptions: Ondansetron ODT 4 MG [Zofran Odt 4 mg] 4 mg PO Q6H PRN PRN #10 tablet PRN Reason: Vomiting
[2021-12-11 07:25] LABS: INFLUENZA A NEGATIVE (NEGATIVE); INFLUENZA B NEGATIVE (NEGATIVE); RESPIRATORY SYNCTIAL VIRUS NEGATIVE (Negative); SARS-CoV-2 Xpert Express NEGATIVE (NEGATIVE)
[2021-12-11] MEDS ORDERED: DECADRON 10MG INJ. IV ONE (07:46)
[2021-12-11] MEDS ORDERED: Compazine 10 MG/2 ML IV ONE (07:47)
[2021-12-11] MEDS ORDERED: Compazine 10 MG/2 ML ONE (08:15)
[2021-12-11] MEDS ORDERED: DECADRON 10MG INJ. ONE (08:15)
[2021-12-11 08:50] LABS: Mucus SLIGHT /HPF (NEGATIVE); WBC 0-2 /HPF (0-5)
--- NOTE | 2021-12-11 08:53 | XRAY ---
Indication: Headache 5 days. No known injury. Multiple contiguous axial images obtained through the head without contrast. Comparison: None Normal appearing brain parenchyma, ventricles, and bony calvarium. Visualized paranasal sinuses and mastoid air cells are clear. Impression: Normal CT head without contrast exam. Comment: Preliminary interpretation made by [facility]. No critical discrepancy.
[2021-12-11 09:03] VITALS: BP 112/67; O2SAT 95
[2021-12-11 09:06] LABS: Appearance CLEAR (CLEAR); Bilirubin NEGATIVE (NEGATIVE); Dipstick done @ ? MAIN LAB; Glucose NEGATIVE (NEGATIVE); Ketones MODERATE-40 (NEGATIVE); Nitrite NEGATIVE (NEGATIVE); Protein,Urine Dip NEGATIVE (Negative); RBC NEGATIVE Ery/ul (0-5); Specific Gravity 1.025 (1.005-1.025); Urine Cultured Indicated? NO; Urobilinogen 1 mg/dL (0-1)
[2021-12-11 09:20] VITALS: PULSE 62
== END 2021-12-11 09:24 | disposition home or self-care (01) ==
LOC: ED 05:41
DX: G43.909 Migraine, unspecified, not intractable, without status migrainosus (principal); R50.9 Fever, unspecified; R11.2 Nausea with vomiting, unspecified; M54.2 Cervicalgia; H53.143 Visual discomfort, bilateral; Z79.891 Long term (current) use of opiate analgesic; Z79.899 Other long term (current) drug therapy; Z28.310 Unvaccinated for COVID-19
CPT/HCPCS: 0241U; 36000; 36415; 70450; 80053; 81015; 84703; 85025; 87040; 96360; 96374; 96375; 96376; 99284; J1100; J1200; J1885; A9270-GY

== ENCOUNTER 2021-12-12 07:47 | Emergency (ER) | payer OTHER ==
[2021-12-12] MEDS ORDERED: Sodium Chloride 0.9% 1000 ML 1,000 ML IV STA (07:54)
[2021-12-12] MEDS ORDERED: PROTONIX 40 MG IV IV ONE ×2 (08:00→08:58)
[2021-12-12] MEDS ORDERED: GI COCKTAIL 45 ML (Maalox/Lidocaine) PO ONE (08:01)
[2021-12-12 08:08] LABS: Absolute Neutrophil Ct (ANC) 5.43 x10^3/uL (1.4-6.9); Basophil (Absolute #) 0.01 x10^3/uL (0-0.4); Eosinophil % 0.1 % (0.00-5.0); Eosinophil (Absolute #) 0.01 x10^3/uL (0-0.5); Hemoglobin 14.3 g/dL (12.0-16.0); Lymphocyte (Absolute #) 0.98 x10^3/uL (1.0-4.6); Lymphocytes % 13.9 % (24.0-44.0); Mean Cell Volume 86.2 fL (78-100); Mean Corpuscular Hemoglobin 28.7 pg (26-32); Mean Corpuscular Hgb Concent. 33.3 g/dL (32-36); Mean Platelet Volume 9.5 fL (7.5-11.0); Monocyte (Absolute #) 0.58 x10^3/uL (0.0-1.3); Monocytes % 8.3 % (0.0-12.0); Neutrophil % 77.3 % (36.0-66.0); Platelet Count 226 x10^3/uL (150-450); Red Blood Count 4.99 x10^6/uL (4.1-5.4)
--- NOTE | 2021-12-12 08:09 | ERPHSYRPT ---
- History of Present Illness Time Seen by Provider: 12/12/21 08:03 Source: patient Physician History: Patient 18-year-old female presents emergency department for evaluation of abdominal pain and fever. Patient had a fever of 101 yesterday. Patient has also been experiencing diarrhea. Patient abdominal pain is worse at the right upper quadrant and epigastric region. However she does express mild diffuse abdominal tenderness. No trauma. No vomiting. Symptoms are progressive. Symptoms are moderate in intensity. Palpation reproduces symptoms. Patient also states that she has decreased p.o. Patient voices no other complaints or concerns at this time. Portions of this note were created with voice recognition technology. There may be grammatical, spelling, punctuation or sound alike errors Timing/Duration: yesterday Severity: moderate Modifying Factors: Improves With: nothing Associated Symptoms: fever Allergies/Adverse Reactions: azithromycin [From Zithromax] Allergy (Verified 12/12/21 07:53) Sulfa (Sulfonamide Antibiotics) Allergy (Verified 12/12/21 07:53) Home Medications: Buprenorphine HCl/Naloxone HCl [Buprenorphine-Nalox 2-0.5MG Tb] 2 mg PO TID 10/23/21 [History] Diazepam 5 mg [Valium 5 MG] 10 mg PO DAILY PRN 10/23/21 [History] Trazodone HCl 50 mg [Desyrel 50 mg] 25 mg PO DAILY PRN 12/11/21 [History] Hx Tetanus, Diphtheria Vaccination/Date Given: Yes Hx Influenza Vaccination/Date Given: No Hx Pneumococcal Vaccination/Date Given: No Travel Risk - Vaccine Status Have you recieved a Covid-19 vaccination: No - Review of Systems Constitutional: No Symptoms, No Fever, No Chills Eyes: No Symptoms Ears, Nose, & Throat: No Symptoms Respiratory: No Symptoms, No Cough, No Dyspnea Cardiac: No Symptoms, No Chest Pain, No Edema, No Syncope Abdominal/Gastrointestinal: No Symptoms, No Abdominal Pain, No Nausea, No Vomiting, No Diarrhea Genitourinary Symptoms: No Symptoms, No Dysuria Musculoskeletal: No Symptoms, No Back Pain, No Neck Pain Skin: No Symptoms, No Rash Neurological: No Symptoms, No Dizziness, No Focal Weakness, No Sensory Changes Psychological: No Symptoms Endocrine: No Symptoms Hematologic/Lymphatic: No Symptoms Immunological/Allergic: No Symptoms All Other Systems: Reviewed and Negative - Past Medical History Pertinent Past Medical History: Yes Neurological History: Migraines ENT History: No Pertinent History Cardiac History: No Pertinent History Respiratory History: Asthma Endocrine Medical History: Hypothyroidism Musculoskeletal History: No Pertinent History GI Medical History: No Pertinent History History: No Pertinent History, Bladder Cancer Psycho-Social History: No Pertinent History Female Reproductive Disorders: No Pertinent History, Other Other Medical History: irregular menstrual bleeding - Past Surgical History Past Surgical History: Yes Neuro Surgical History: No Pertinent History Cardiac: No Pertinent History Respiratory: No Pertinent History Gastrointestinal: No Pertinent History Genitourinary: No Pertinent History Musculoskeletal: No Pertinent History Female Surgical History: Other Other Surgical History: oral surgery - Social History Smoking Status: Former smoker Exposure to second hand smoke: No Drug Use: none Patient Lives Alone: No - Female History Hx Now: No - Nursing Vital Signs Nursing Vital Signs: Initial Vital Signs Temperature 97.9 F 12/12/21 07:55 Pulse Rate 82 12/12/21 07:55 Respiratory Rate 18 12/12/21 07:55 Blood Pressure 134/91 12/12/21 07:55 O2 Sat by Pulse Oximetry 100 12/12/21 07:55 Pain Scale Pain Intensity 3 - Physical Exam General Appearance: no apparent distress, alert Eye Exam: PERRL/EOMI, eyes nml inspection Ears, Nose, Throat Exam: normal ENT inspection, TMs normal, pharynx normal, moist mucous membranes Neck Exam: normal inspection, non-tender, supple, full range of motion Respiratory Exam: normal breath sounds, lungs clear, airway intact, No respiratory distress Cardiovascular Exam: regular rate/rhythm, normal heart sounds, normal peripheral pulses Gastrointestinal/Abdomen Exam: soft, normal bowel sounds, other (Right upper quadrant and epigastric tenderness to palpation. Patient also mildly tender throughout her abdomen. Overlying soft tissue intact. No signs of trauma.), No tenderness, No mass Back Exam: normal inspection, normal range of motion, No CVA tenderness, No vertebral tenderness Extremity Exam: normal inspection, normal range of motion, pelvis stable Neurologic Exam: alert, oriented x 3, cooperative, normal mood/affect, nml cerebellar function, nml station & gait, sensation nml, No motor deficits Skin Exam: normal color, warm, dry, No rash Lymphatic Exam: No adenopathy SpO2 Interpretation: normal SpO2: 98 O2 Delivery: Room Air - Course Nursing assessment & vital signs reviewed: Yes - CT Exams Abdomen/Pelvis CT Interpretation: Tele-radiologist Report (Moderate levoscoliosis otherwise negative CT abdomen pelvis without contrast) - Radiology Ultrasound Exam Gallbladder Ultrasound: tele radiology report (Gallbladder shows minimal distention and minimal sludge. No stones.) Ordered Tests: Active Orders 24 hr Category Date Time Status IV Insertion STAT Care 12/12/21 07:54 Active ABDOMEN AND PELVIS W/0 CONTRAS [CT] Stat Exams 12/12/21 07:54 Completed GALLBLADDER [US] Stat Exams 12/12/21 07:56 Completed CBC W DIFF Stat Lab 12/12/21 08:00 Completed CMP Stat Lab 12/12/21 08:00 Completed HCG,QUALITATIVE URINE Stat Lab 12/12/21 08:18 Completed LIPASE Stat Lab 12/12/21 08:00 Completed TROPONIN Q4H Lab 12/12/21 08:00 Completed TROPONIN Q4H Lab 12/12/21 12:00 Ordered TROPONIN Q4H Lab 12/12/21 16:00 Ordered UA W/RFX CULTURE Stat Lab 12/12/21 08:18 Completed Medication Summary Discontinued Medications Generic Name Dose Route Start Last Admin Trade Name Freq PRN Reason Stop Dose Admin Al Hydrox/Mg Hydrox/Simethicone Confirm 12/12/21 08:58 Mag Hydrox/Al Hydrox/Simeth 30 Ml Udcup Administered 12/12/21 08:59 Dose 30 ml .ROUTE .STK-MED ONE Sodium Chloride 1,000 mls @ 999 mls/hr 12/12/21 07:54 12/12/21 08:59 Sodium Chloride 0.9% 1000 Ml IV 12/12/21 08:54 999 mls/hr .Q1H1M STA Administration Sodium Chloride Confirm 12/12/21 08:58 Sodium Chloride 0.9% 1000 Ml Administered 12/12/21 08:59 Dose 1,000 mls @ ud .ROUTE .STK-MED ONE Lidocaine HCl Confirm 12/12/21 08:58 Lidocaine Hcl 2% Viscous 15 Ml Udcup Administered 12/12/21 08:59 Dose 15 ml .ROUTE .STK-MED ONE Magnesium Hydroxide 45 ml 12/12/21 08:01 12/12/21 09:00 Mag Hydrx/Alum Hyd/Simeth/Lido 45 Ml Bottle PO 12/12/21 08:02 45 ml STAT ONE Administration Pantoprazole Sodium 40 mg 12/12/21 08:00 12/12/21 09:00 Pantoprazole 40 Mg Vial IV 12/12/21 08:01 40 mg STAT ONE Administration Pantoprazole Sodium Confirm 12/12/21 08:58 Pantoprazole 40 Mg Vial Administered 12/12/21 08:59 Dose 40 mg IV .[facility] ONE Lab/Rad Data: Laboratory Result Diagrams 12/12/21 08:00 12/12/21 08:00 Laboratory Results 12/12/21 12/12/21 12/12/21 Range/Units 08:18 08:18 08:00 WBC (4.0-10.5) x10^3/uL RBC (4.1-5.4) x10^6/uL Hgb (12.0-16.0) g/dL Hct (35-47) % MCV (78-100) fL MCH (26-32) pg MCHC (32-36) g/dL RDW (11.5-14.0) % Plt Count (150-450) x10^3/uL MPV (7.5-11.0) fL Gran % (36.0-66.0) % Immature Gran % (Auto) (0.00-0.4) % Nucleat RBC Rel Count (0.00-0.1) % Eos # (Auto) (0-0.5) x10^3/uL Immature Gran # (Auto) (0.00-0.03) x10^3u/L Absolute Lymphs (auto) (1.0-4.6) x10^3/uL Absolute Monos (auto) (0.0-1.3) x10^3/uL Absolute Nucleated RBC (0.00-0.01) x10^3u/L Lymphocytes % (24.0-44.0) % Monocytes % (0.0-12.0) % Eosinophils % (0.00-5.0) % Basophils % (0.0-0.4) % Absolute Granulocytes (1.4-6.9) x10^3/uL Basophils # (0-0.4) x10^3/uL Sodium (137-145) mmol/L Potassium (3.5-5.1) mmol/L Chloride (98-107) mmol/L Carbon Dioxide (22-30) mmol/L Anion Gap (5-15) MEQ/L BUN (7-17) mg/dL Creatinine (0.52-1.04) mg/dL Estimated GFR ML/MIN Glucose (74-106) mg/dL Calcium (8.4-10.2) mg/dL Total Bilirubin (0.2-1.3) mg/dL AST (14-36) U/L ALT (0-35) U/L Alkaline Phosphatase (38-126) U/L Troponin I < 0.012 (0.000-0.034) ng/mL Serum Total Protein (6.3-8.2) g/dL Albumin (3.5-5.0) g/dL Lipase (23-300) U/L Urinalys Dipstick Clnc MAIN LAB Urine Color YELLOW (YELLOW) Urine Appearance CLEAR (CLEAR) Urine pH 6.0 (5-6) Ur Specific [place] >=1.030 (1.005-1.025) POC Urine Protein Conf NEGATIVE (Negative) Urine Ketones NEGATIVE (NEGATIVE) Urine Nitrite NEGATIVE (NEGATIVE) Urine Bilirubin NEGATIVE (NEGATIVE) Urine Urobilinogen 0.2 (0-1) mg/dL Urine Leukocytes NEGATIVE (NEGATIVE) Urine WBC (Auto) 3-5 (0-5) /HPF Urine RBC (Auto) NONE (0-2) /HPF U Epithel Cells (Auto) RARE (FEW) /HPF Urine Bacteria (Auto) NONE (NEGATIVE) /HPF Urine RBC TRACE-LYSED (0-5) Cedric/ul Urine Mucus (Auto) SLIGHT (NEGATIVE) /HPF Ur Culture Indicated? NO Urine Glucose NEGATIVE (NEGATIVE) mg/dL Urine HCG, Qual NEGATIVE (Negative) 12/12/21 12/12/21 Range/Units 08:00 08:00 WBC 7.0 (4.0-10.5) x10^3/uL RBC 4.99 (4.1-5.4) x10^6/uL Hgb 14.3 (12.0-16.0) g/dL Hct 43.0 (35-47) % MCV 86.2 (78-100) fL MCH 28.7 (26-32) pg MCHC 33.3 (32-36) g/dL RDW 13.0 (11.5-14.0) % Plt Count 226 (150-450) x10^3/uL MPV 9.5 (7.5-11.0) fL Gran % 77.3 H (36.0-66.0) % Immature Gran % (Auto) 0.3 (0.00-0.4) % Nucleat RBC Rel Count 0.0 (0.00-0.1) % Eos # (Auto) 0.01 (0-0.5) x10^3/uL Immature Gran # (Auto) 0.02 (0.00-0.03) x10^3u/L Absolute Lymphs (auto) 0.98 L (1.0-4.6) x10^3/uL Absolute Monos (auto) 0.58 (0.0-1.3) x10^3/uL Absolute Nucleated RBC 0.00 (0.00-0.01) x10^3u/L Lymphocytes % 13.9 L (24.0-44.0) % Monocytes % 8.3 (0.0-12.0) % Eosinophils % 0.1 (0.00-5.0) % Basophils % 0.1 (0.0-0.4) % Absolute Granulocytes 5.43 (1.4-6.9) x10^3/uL Basophils # 0.01 (0-0.4) x10^3/uL Sodium 139 (137-145) mmol/L Potassium 4.0 (3.5-5.1) mmol/L Chloride 103 (98-107) mmol/L Carbon Dioxide 28 (22-30) mmol/L Anion Gap 13.4 (5-15) MEQ/L BUN 12 (7-17) mg/dL Creatinine 0.55 (0.52-1.04) mg/dL Estimated GFR > 60.0 ML/MIN Glucose 107 H (74-106) mg/dL Calcium 9.7 (8.4-10.2) mg/dL Total Bilirubin 0.30 (0.2-1.3) mg/dL AST 33 (14-36) U/L ALT 28 (0-35) U/L Alkaline Phosphatase 73 (38-126) U/L Troponin I (0.000-0.034) ng/mL Serum Total Protein 7.6 (6.3-8.2) g/dL Albumin 4.5 (3.5-5.0) g/dL Lipase 37 (23-300) U/L Urinalys Dipstick Clnc Urine Color (YELLOW) Urine Appearance (CLEAR) Urine pH (5-6) Ur Specific [place] (1.005-1.025) POC Urine Protein Conf (Negative) Urine Ketones (NEGATIVE) Urine Nitrite (NEGATIVE) Urine Bilirubin (NEGATIVE) Urine Urobilinogen (0-1) mg/dL Urine Leukocytes (NEGATIVE) Urine WBC (Auto) (0-5) /HPF Urine RBC (Auto) (0-2) /HPF U Epithel Cells (Auto) (FEW) /HPF Urine Bacteria (Auto) (NEGATIVE) /HPF Urine RBC (0-5) Cedric/ul Urine Mucus (Auto) (NEGATIVE) /HPF Ur Culture Indicated? Urine Glucose (NEGATIVE) mg/dL Urine HCG, Qual (Negative) - Progress Progress: improved Progress Note: Patient reassessed. Patient states she feels much better. Patient has not had diarrhea for 1 day. Patient advised to keep her self hydrated at home. Lipase negative. Right upper quadrant ultrasound negative. CT abdomen pelvis negative. Supportive care only at this time. Will discharge home. Patient agrees to follow-up with her primary care doctor within 48 hours for reevaluati on. No indication for further work-up at this time. Patient voices no other complaints or concerns Portions of this note were created with voice recognition technology. There may be grammatical, spelling, punctuation or sound alike errors 12/12/21 09:59 Counseled pt/family regarding: lab results, diagnosis, need for follow-up, rad results - Departure Departure Disposition: Home Clinical Impression: Abdominal pain, Diarrhea Condition: Stable Critical Care Time: No Referrals: DOCTOR,NO FAMILY [Primary Care Provider] - Follow up/PCP as directed DEREK LARIOS [ACTIVE STAFF] - Follow up/PCP as directed Additional Instructions: Discharge/Care Plan ALEJANDROIOANA MARION was seen on 12/12/21 in the Emergency Room. The patient was counseled regarding Diagnosis,Lab results, Imaging studies, need for follow up and when to return to the Emergency Room. Prescriptions given: Discharge Note I have spoken with the patient and/or caregivers. I have explained the patient's condition, diagnosis and treatment plan based on the information available to me at this time. I have answered the patient's and/or caregiver's questions and addressed any concerns. The patient and/or caregivers have as good understanding of the patient's diagnosis, condition and treatment plan as can be expected at this point. The vital signs have been stable. The patient's condition is stable and appropriate for discharge from the emergency department. The patient will pursue further outpatient evaluation with the primary care physician or other designated or consulting physician as outlined in the discharge instructions. The patient and/or caregivers are agreeable to this plan of care and follow-up instructions have been explained in detail. The patient and/or caregivers have received these instruction. The patient/and or caregivers are aware that any significant change in condition or worsening of symptoms should prompt an immediate return to this or the closest emergency department or call 911.
[2021-12-12 08:26] LABS: ALBUMIN 4.5 g/dL (3.5-5.0); ALKALINE PHOSPHATASE 73 U/L (38-126); ANION GAP 13.4 MEQ/L (5-15); BLOOD UREA NITROGEN 12 mg/dL (7-17); CHLORIDE 103 mmol/L (98-107); Calcium 9.7 mg/dL (8.4-10.2); Carbon Dioxide 28 mmol/L (22-30); Creatinine 1 0.55 mg/dL (0.52-1.04); EST GLOMERULAR FILTRATION RATE > 60.0 ML/MIN; Glucose 107 mg/dL (74-106); LIPASE 37 U/L (23-300); SGOT/AST 33 U/L (14-36); SGPT/ALT 28 U/L (0-35); SODIUM 139 mmol/L (137-145); Total Protein 7.6 g/dL (6.3-8.2)
[2021-12-12 08:27] LABS: Appearance CLEAR (CLEAR); Bilirubin NEGATIVE (NEGATIVE); Glucose NEGATIVE (NEGATIVE); Ketones NEGATIVE (NEGATIVE); Nitrite NEGATIVE (NEGATIVE); Protein,Urine Dip NEGATIVE (Negative); RBC TRACE-LYSED Ery/ul (0-5); Specific Gravity >=1.030 (1.005-1.025); Urobilinogen 0.2 mg/dL (0-1)
[2021-12-12 08:28] LABS: Dipstick done @ ? MAIN LAB
[2021-12-12 08:29] LABS: Epithelial Cells RARE /HPF (FEW); Mucus SLIGHT /HPF (NEGATIVE)
[2021-12-12 08:30] LABS: Urine Cultured Indicated? NO
[2021-12-12] MEDS ORDERED: Sodium Chloride 0.9% 1000 ML 1,000 ML ONE (08:58)
[2021-12-12] MEDS ORDERED: MAALOX ES 30 ML UNIT DOSE ONE (08:58)
[2021-12-12] MEDS ORDERED: XYLOCAINE VISCOUS 2% 15 ML CUP ONE (08:58)
--- NOTE | 2021-12-12 09:16 | XRAY ---
Indication: Abdomen pain and diarrhea 5 days. Multiple contiguous has images obtained through the abdomen and pelvis without contrast. Comparison: None Lung bases clear. Heart not enlarged. Noncontrasted stomach and bowel loops appear nonobstructed with normal appendix. No free fluid/air. Remaining liver, gallbladder, pancreas, spleen, adrenal glands, kidneys, ureters, bladder, uterus, and aorta are unremarkable for noncontrast exam. Osseous structures intact with moderate levorotoscoliosis centered at L1. Impression: Levorotoscoliosis. Remaining CT abdomen/pelvis without contrast exam is negative.
--- NOTE | 2021-12-12 09:18 | XRAY ---
Indication: Diarrhea. Two-dimensional gallbladder sonogram performed. Comparison: None Gallbladder mildly distended with minimal sludge. No gallstones, wall thickening, or pericholecystic fluid. Remaining visualized liver, pancreas, and right kidney are sonographically normal. Right kidney measures 11.9 cm in length. Impression: Minimal gallbladder sludge. Remaining gallbladder sonogram is negative.
[2021-12-12 09:53] VITALS: O2SAT 98
[2021-12-12 10:11] VITALS: BP 122/79; PULSE 63
== END 2021-12-12 10:22 | disposition home or self-care (01) ==
LOC: ED 07:47
DX: R19.7 Diarrhea, unspecified (principal); R10.11 Right upper quadrant pain; R10.13 Epigastric pain; R50.9 Fever, unspecified; Z79.891 Long term (current) use of opiate analgesic; Z79.899 Other long term (current) drug therapy; Z28.310 Unvaccinated for COVID-19
CPT/HCPCS: 36000; 36415; 74176; 76705; 80053; 81015; 81025; 83690; 84484; 85025; 96374; 99284; A9270-GY

== ENCOUNTER 2022-03-26 13:52 | Emergency (ER) | payer OTHER ==
[2022-03-26 16:13] LABS: Group A Strep NOT DETECTED (NEGATIVE)
[2022-03-26 16:24] LABS: INFLUENZA B NEGATIVE (NEGATIVE); RESPIRATORY SYNCTIAL VIRUS NEGATIVE (Negative); SARS-CoV-2 Xpert Express NEGATIVE (NEGATIVE)
[2022-03-26 16:28] LABS: INFLUENZA A POSITIVE (NEGATIVE)
[2022-03-26 16:39] VITALS: BP 123/91
[2022-03-26 17:02] VITALS: O2SAT 98
[2022-03-26] MEDS ORDERED: TORAdol 30 mg Injection IM ONE (17:23)
[2022-03-26] MEDS ORDERED: TYLENOL EXTRA STRENGTH 500 MG PO PRN (17:23)
[2022-03-26] MEDS ORDERED: TYLENOL EXTRA STRENGTH 500 MG ONE (17:26)
[2022-03-26] MEDS ORDERED: TORAdol 30 mg Injection ONE (17:26)
[2022-03-26] MEDS ORDERED: Sodium Chloride 0.9% 1000 ML 1,000 ML IV STA (17:30)
[2022-03-26] MEDS ORDERED: Compazine 10 MG/2 ML IV ONE (17:31)
[2022-03-26] MEDS ORDERED: BENADRYL 50 MG/ML IV ONE (17:32)
--- NOTE | 2022-03-26 17:34 | ERPHSYRPT ---
- History of Present Illness Time Seen by Provider: 03/26/22 14:55 Source: patient Exam Limitations: no limitations Patient Subjective Stated Complaint: "I've had a terrible headache, cough, and feel like I have the flu or Covid or something." Triage Nursing Assessment: Pt presents to ER for complaints of headache, rates pain 7/10 scale. Complains of sore throat, cough, and body aches/chills. Pt is alert and oriented x 3. Skin is pink, warm, and dry. Pt respirations are easy and pt complaints of productive cough with green sputum. Pt denies nausea, vomiting, or diarrhea. States s/sx have been present for 3 days and others have been sick around her. Physician History: Patient is a 27-year-old female presents to emergency department for evaluation of a migraine headache. Patient is known to have influenza A. Patient complaining of a headache rated 7 out of 10. He has a mild sore throat a cough and generalized body aches. Symptoms are mild to moderate in intensity. No specific worsening improving factors. Patient voices no other complaints or concerns at this time. Portions of this note were created with voice recognition technology. There may be grammatical, spelling, punctuation or sound alike errors Timing/Duration: day(s) Severity: moderate (3 days) Modifying Factors: Improves With: nothing Associated Symptoms: denies symptoms Allergies/Adverse Reactions: azithromycin [From Zithromax] Allergy (Verified 03/26/22 15:00) Sulfa (Sulfonamide Antibiotics) Allergy (Verified 03/26/22 15:00) Home Medications: Buprenorphine HCl/Naloxone HCl [Buprenorphine-Nalox 2-0.5MG Tb] 2 mg PO TID 10/23/21 [History] Diazepam 5 mg [Valium 5 MG] 10 mg PO DAILY PRN 10/23/21 [History] Trazodone HCl 50 mg [Desyrel 50 mg] 25 mg PO DAILY PRN 12/11/21 [History] Topiramate 100 mg PO BID 03/26/22 [History] Hx Tetanus, Diphtheria Vaccination/Date Given: Yes Hx Influenza Vaccination/Date Given: Yes Hx Pneumococcal Vaccination/Date Given: No Immunizations Up to Date: Yes Travel Risk - International Travel Have you traveled outside of the country in past 3 weeks: No - Coronavirus Screening Are you exhibiting any of the following symptoms?: Yes Symptoms: Cough: New Onset, Shortness of Breath, Headaches/Body Aches/Fatigue Close contact with a COVID-19 positive Pt in past 14-21 Days: Yes - Vaccine Status Have you recieved a Covid-19 vaccination: No - Review of Systems Constitutional: No Symptoms, No Fever, No Chills Eyes: No Symptoms Ears, Nose, & Throat: No Symptoms Respiratory: No Symptoms, No Cough, No Dyspnea Cardiac: No Symptoms, No Chest Pain, No Edema, No Syncope Abdominal/Gastrointestinal: No Symptoms, No Abdominal Pain, No Nausea, No Vomiting, No Diarrhea Genitourinary Symptoms: No Symptoms, No Dysuria Musculoskeletal: No Symptoms, No Back Pain, No Neck Pain Skin: No Symptoms, No Rash Neurological: No Symptoms, No Dizziness, No Focal Weakness, No Sensory Changes Psychological: No Symptoms Endocrine: No Symptoms Hematologic/Lymphatic: No Symptoms Immunological/Allergic: No Symptoms All Other Systems: Reviewed and Negative - Past Medical History Pertinent Past Medical History: Yes Neurological History: Migraines ENT History: No Pertinent History Cardiac History: No Pertinent History Respiratory History: Asthma Endocrine Medical History: Hyperthyroidism, Hypothyroidism Musculoskeletal History: No Pertinent History GI Medical History: No Pertinent History History: No Pertinent History, Bladder Cancer Psycho-Social History: No Pertinent History Female Reproductive Disorders: No Pertinent History, Other Other Medical History: irregular menstrual bleeding, thyriod cancer - Past Surgical History Past Surgical History: Yes Neuro Surgical History: No Pertinent History Cardiac: No Pertinent History Respiratory: No Pertinent History Gastrointestinal: No Pertinent History Genitourinary: No Pertinent History Musculoskeletal: No Pertinent History Female Surgical History: Other Other Surgical History: vaginal sx, thyriod - Social History Smoking Status: Current every day smoker Exposure to second hand smoke: No Drug Use: none Patient Lives Alone: No - Female History Hx Last Menstrual Period: 03/21/2022 Hx Now: No - Nursing Vital Signs Nursing Vital Signs: Initial Vital Signs Temperature 97.4 F 03/26/22 14:53 Pulse Rate 100 H 03/26/22 14:53 Respiratory Rate 18 03/26/22 14:53 Blood Pressure 110/72 03/26/22 14:53 O2 Sat by Pulse Oximetry 98 03/26/22 14:53 Pain Scale Pain Intensity 7 - Physical Exam General Appearance: no apparent distress, alert Eye Exam: PERRL/EOMI, eyes nml inspection Ears, Nose, Throat Exam: normal ENT inspection, TMs normal, pharynx normal, moist mucous membranes Neck Exam: normal inspection, non-tender, supple, full range of motion Respiratory Exam: normal breath sounds, lungs clear, No respiratory distress Cardiovascular Exam: regular rate/rhythm, normal heart sounds, normal peripheral pulses Gastrointestinal/Abdomen Exam: soft, normal bowel sounds, No tenderness, No mass Back Exam: normal inspection, normal range of motion, No CVA tenderness, No vertebral tenderness Extremity Exam: normal inspection, normal range of motion, pelvis stable Neurologic Exam: alert, oriented x 3, cooperative, normal mood/affect, nml cerebellar function, nml station & gait, sensation nml, No motor deficits Skin Exam: normal color, warm, dry, No rash Lymphatic Exam: No adenopathy SpO2: 98 - Course Nursing assessment & vital signs reviewed: Yes Ordered Tests: Medication Summary Generic Name Dose Route Start Last Admin Trade Name Freq PRN Reason Stop Dose Admin Acetaminophen 1,000 mg 03/26/22 17:23 03/26/22 17:29 Acetaminophen 500 Mg Tablet PO 04/25/22 17:22 1,000 mg Q4H PRN PRN Administration HEADACHE Sodium Chloride 1,000 mls @ 999 mls/hr 03/26/22 17:30 Sodium Chloride 0.9% 1000 Ml IV 03/26/22 18:30 .Q1H1M STA Discontinued Medications Generic Name Dose Route Start Last Admin Trade Name Freq PRN Reason Stop Dose Admin Diphenhydramine HCl 25 mg 03/26/22 17:32 Diphenhydramine Hcl 50 Mg/Ml Vial IV 03/26/22 17:33 STAT ONE Ketorolac Tromethamine 30 mg 03/26/22 17:23 03/26/22 17:29 Ketorolac Tromethamine 30 Mg/Ml Inj IM 03/26/22 17:24 30 mg STAT ONE Administration Ketorolac Tromethamine Confirm 03/26/22 17:26 Ketorolac Tromethamine 30 Mg/Ml Inj Administered 03/26/22 17:27 Dose 30 mg .ROUTE .STK-MED ONE Prochlorperazine Edisylate 10 mg 03/26/22 17:31 Prochlorperazine Edisylate 10 Mg/2 Ml Vial IV 03/26/22 17:32 STAT ONE Lab/Rad Data: Laboratory Results 03/26/22 Range/Units 15:23 Influenza Type A Ag POSITIVE (NEGATIVE) Influenza Type B Ag NEGATIVE (NEGATIVE) RSV (PCR) NEGATIVE (Negative) SARS-CoV-2 (PCR) NEGATIVE (NEGATIVE) Group A Strep Antibody NOT DETECTED (NEGATIVE) - Progress Progress: improved Progress Note: Patient reassessed. Headache resolved. Patient is ready for discharge. Repeat neuro exam within normal limits. Will discharge home. Patient that she wants to go home and sleep. Patient states he is also hungry. Significant other at bedside. They voiced no other complaints or concerns at this time. Portions of this note were created with voice recognition technology. There may be grammatical, spelling, punctuation or sound alike errors 03/26/22 17:49 Counseled pt/family regarding: diagnosis, need for follow-up, rad results - Departure Departure Disposition: Home Clinical Impression: Influenza A, Migraine Condition: Stable Critical Care Time: No Referrals: SHALOM SON [Primary Care Provider] - Follow up/PCP as directed Instructions: Flu, Adult (DC) Additional Instructions: Discharge/Care Plan IOANA ALLEN was seen on 03/26/22 in the Emergency Room. The patient was counseled regarding Diagnosis,Lab results, Imaging studies, need for follow up and when to return to the Emergency Room. Prescriptions given: Discharge Note I have spoken with the patient and/or caregivers. I have explained the patient's condition, diagnosis and treatment plan based on the information available to me at this time. I have answered the patient's and/or caregiver's questions and addressed any concerns. The patient and/or caregivers have as good understanding of the patient's diagnosis, condition and treatment plan as can be expected at this point. The vital signs have been stable. The patient's condition is stable and appropriate for discharge from the emergency department. The patient will pursue further outpatient evaluation with the primary care physician or other designated or consulting physician as outlined in the discharge instructions. The patient and/or caregivers are agreeable to this plan of care and follow-up instructions have been explained in detail. The patient and/or caregivers have received these instruction. The patient/and or caregivers are aware that any significant change in condition or worsening of symptoms should prompt an immediate return to this or the closest emergency department or call 911.
[2022-03-26 17:50] VITALS: PULSE 80
== END 2022-03-26 17:52 | disposition home or self-care (01) ==
LOC: ED 13:52
DX: G43.909 Migraine, unspecified, not intractable, without status migrainosus (principal); J10.1 Influenza due to other identified influenza virus with other respiratory manifestations; R05.9 Cough, unspecified; M79.10 Myalgia, unspecified site; Z79.891 Long term (current) use of opiate analgesic; Z79.899 Other long term (current) drug therapy; Z28.310 Unvaccinated for COVID-19; Z72.0 Tobacco use
CPT/HCPCS: 0241U; 87651; 96372; 99283; J1885; A9270-GY